=== PATIENT | female | born 1945 | race Caucasian/White ===

== ENCOUNTER 2019-12-19 07:09 | Day surgery (SDC) | payer MEDICARE, BC ==
[~2019-12-19] VITALS: Ht 160 cm; Wt 83.4 kg
[2019-12-19 08:28] VITALS: BP 144/61; PULSE 52; TEMP 97.8
[2019-12-19] MEDS ORDERED: MAXZIDE-25MG TA1 TAB PO (08:38)
[2019-12-19] MEDS ORDERED: GLUCOPHAGE500 MG/TAB PO (08:38)
[2019-12-19] MEDS ORDERED: MOBIC15 MG PO (08:39)
[2019-12-19] MEDS ORDERED: LOPRESSOR 550 MG/TAB PO (08:39)
[2019-12-19] MEDS ORDERED: CRESTOR40 MG PO (08:40)
[2019-12-19] MEDS ORDERED: TRICOR145 MG PO (08:40)
[2019-12-19] MEDS ORDERED: ULTRAM 50MG TAB50 MG PO ×2 (08:41→14:34)
[2019-12-19] MEDS ORDERED: VITAMINC500CH PO (08:41)
[2019-12-19] MEDS ORDERED: NATURAL E400 IU PO (08:42)
[2019-12-19] MEDS ORDERED: CALCIUM CARBON650 M2 PO (08:42)
[2019-12-19] MEDS ORDERED: VITAMIN D 400400 IU PO (08:43)
[2019-12-19 13:57] VITALS: TEMP 97.1
[2019-12-19 14:00] VITALS: BP 165/75; PULSE 57
--- NOTE | 2019-12-19 14:00 | NUR ---
The patient arrived back to [facility] from the recovery room at this time. The patient appears drowsy but arouses easily to her name. Post operative vital signs were started at this time. The patient has vivar set in place to an incision to her left breast that appears without redness or edema. Post operative vital signs were started at this time. The patient requests to try some water and blueberry muffin. Family was brought back to be at her bedside. Will continue to monitor the patient.
[2019-12-19 14:15] VITALS: BP 135/68; PULSE 58
--- NOTE | 2019-12-19 14:15 | NUR ---
The patient appears to be tolerating the food and drink well. The patient's vital signs appear stabel. Call light is within reach. Will continue to monitor the patient.
[2019-12-19 14:30] VITALS: BP 147/54; PULSE 49
--- NOTE | 2019-12-19 14:30 | NUR ---
The patient has finished her muffin and appeared to tolerate it well. The patient denies wanting anything further to eat or drink at this time. The patient reports some pain at her incision site. Will continue to monitor the patient.
[2019-12-19 14:45] VITALS: BP 135/53; PULSE 51
--- NOTE | 2019-12-19 14:45 | NUR ---
The patient was given a PRN dose of tramdadol 50 mg PO one tab at this time. The patient's prescription for tramadol was called in to the [facility] pharmacy at this time.
--- NOTE | 2019-12-19 14:50 | NUR ---
The patient ambulated to the bathroom with the stand by assistance of one and appeared to tolerate the activity well and voided without difficulty. The nurse instructed the patient to get dressed and notify the staff when she is ready to review her discharge paperwork.
--- NOTE | 2019-12-19 15:00 | NUR ---
Discharge instructions were reviewed with the patient and her family at this time and questions were answered. The patient's IV to her left hand was removed and a pressure dressing was applied to the site. The patient is dressed and ready to be escorted out.
--- NOTE | 2019-12-19 15:10 | NUR ---
The patient was escorted out via wheelchair to a private vehicle by JATIN Diaz. The patient's belongings and discharge paperwork were sent with her. The patient's family is present to drive her home.
== END 2019-12-19 15:10 | disposition home or self-care (01) ==
LOC: SDCO 07:09
DX: C50.411 Malignant neoplasm of upper-outer quadrant of right female breast (principal); I10 Essential (primary) hypertension; E11.9 Type 2 diabetes mellitus without complications; M19.90 Unspecified osteoarthritis, unspecified site; E78.00 Pure hypercholesterolemia, unspecified; Z90.49 Acquired absence of other specified parts of digestive tract; Z79.84 Long term (current) use of oral hypoglycemic drugs; Z96.653 Presence of artificial knee joint, bilateral
CPT/HCPCS: A9541; J1100; J2250; J2405; J2704; J2795; J3010; J7120

== ENCOUNTER → 2022-08-11 | Outpatient (CLI) | payer MEDICARE, BC ==
[~2022-08-11] MED LIST: CALCIUM CARBON650 M2 PO; CRESTOR40 MG PO; GLUCOPHAGE500 MG/TAB PO; LOPRESSOR 550 MG/TAB PO; MAXZIDE-25MG TA1 TAB PO; MOBIC15 MG PO; NATURAL E400 IU PO; TRICOR145 MG PO; ULTRAM 50MG TAB50 MG PO; VITAMIN D 400400 IU PO; VITAMINC500CH PO
== END ==
LOC: MC.RAD 09:44
DX: C50.411 Malignant neoplasm of upper-outer quadrant of right female breast (principal); Z85.3 Personal history of malignant neoplasm of breast